=== PATIENT | female | born 1995 | race Caucasian/White ===

== ENCOUNTER 2023-02-19 10:35 | Inpatient (IN) | payer OTHER ==
[2023-02-19 11:26] VITALS: RESP 18
[2023-02-19] MEDS ORDERED: ELECTROLYTE-148 SOLN 500 ML IV ONE (12:36)
[2023-02-19] MEDS ORDERED: ELECTROLYTE-148 SOLN 1,000 ML IV SCH (12:45)
[2023-02-19 13:01] LABS: BASO % 0.4 % (0-2.0); EOS % 1.2 % (0-4.5); HEMATOCRIT 37.4 % (32.4-45.2); HEMOGLOBIN 11.8 GM/dL (10.7-15.3); LYMPH % 19.3 % (8-40); MCH 21.6 pg (25.7-33.7); MCHC 31.4 g/dl (32.0-36.0); MEAN CELL VOLUME 68.7 fl (80-96); MEAN PLT VOLUME 8.9 fl (7.5-11.1); MONO % 7.9 % (3.8-10.2); NEUT % 71.2 % (42.8-82.8); PLATELET COUNT 206 10^3/uL (134-434); RBC 5.45 M/mm3 (3.60-5.2); RDW 24.9 % (11.6-15.6); WHITE BLOOD COUNT 11.2 K/mm3 (4.0-10.0)
[2023-02-19 13:07] LABS: INR 1.1 (0.83-1.09); PROTHROMBIN TIME (PATIENT) 12.8 SEC (9.7-13.0)
[2023-02-19 13:10] LABS: ACTIVATED PTT 24.4 SECONDS (25.2-36.5)
[2023-02-19 13:18] VITALS: BMI 29.8
[2023-02-19 13:20] LABS: CALCIUM 8.7 mg/dL (8.5-10.1)
[2023-02-19 13:21] LABS: BLOOD UREA NITROGEN 9.3 mg/dL (7-18)
[2023-02-19 13:24] LABS: CREATININE 0.5 mg/dL (0.55-1.3)
[2023-02-19] MEDS ORDERED: FENTANYL/BUPIVACAINE/NS/PF - PCEA - 50 ML DISP.SYRIN EP ONE (13:29)
[2023-02-19 13:51] LABS: ANISOCYTOSIS 3+; MACROCYTOSIS 0; OVALOCYTE 1+; TEAR DROP CELLS 1+
[2023-02-19] MEDS ORDERED: AMPICILLIN - 2 GM in SODIUM CHLORIDE 100 ML IVPB ONE (14:00)
[2023-02-19] MEDS ORDERED: AMPICILLIN SODIUM 2 GM VIAL ONE (14:02)
[2023-02-19] MEDS ORDERED: NALOXONE HCL 0.4 MG/ML VIAL IVPUSH PRN (14:12)
[2023-02-19] MEDS ORDERED: FENTANYL/BUPIVACAINE/NS/PF - PCEA - 50 ML DISP.SYRIN EP SCH (14:15)
[2023-02-19 14:19] LABS: HIV INTERPRETATION NEGATIVE (NEGATIVE)
[2023-02-19] MEDS ORDERED: OXYTOCIN 20 UNITS in 0.9% NS 20 UNIT/1,000 ML INFUS.BAG IV ONE ×2 (14:41→15:57)
[2023-02-19 14:53] LABS: COCAINE, UR NEGATIVE (NEGATIVE); METHADONE, UR NEGATIVE (NEGATIVE); OPIATES, URI NEGATIVE (NEGATIVE); PHENCYCLIDINE,URINE NEGATIVE (NEGATIVE); URINE BENZODIAZEPINES NEGATIVE (NEGATIVE)
[2023-02-19 14:54] LABS: URINE BARBITURATES NEGATIVE (NEGATIVE)
[2023-02-19 14:55] LABS: URINE AMPHETAMINES NEGATIVE (NEGATIVE)
[2023-02-19] MEDS ORDERED: BENZOCAINE 20% 57 GM BOTTLE TP PRN (15:27)
[2023-02-19] MEDS ORDERED: BENZOCAINE 28 GM HEMORRHOIDAL OINTMENT TP PRN (15:27)
[2023-02-19] MEDS ORDERED: WITCH HAZEL 50% (TUCKS) 40 PAD/JAR PAD TP PRN (15:27)
[2023-02-19] MEDS ORDERED: BISACODYL 10 MG SUPP.RECT RC PRN (15:27)
[2023-02-19] MEDS ORDERED: METHYLERGONOVINE MALEATE 0.2 MG/1 ML AMP IM PRN (15:27)
[2023-02-19] MEDS ORDERED: OXYTOCIN 20 UNITS in 0.9% NS 20 UNIT/1,000 ML INFUS.BAG IV SCH (15:30)
[2023-02-19] MEDS ORDERED: AMPICILLIN - 1 GM in SODIUM CHLORIDE 100 ML IVPB SCH (18:00)
[2023-02-20] MEDS: ACETAMINOPHEN 325 MG TABLET (FP) PO PRN (00:08)
[2023-02-20] MEDS: IBUPROFEN 600 MG TABLET (FP) PO PRN ×2 (06:48→19:23)
[2023-02-20 08:18] LABS: BASO % 0.4 % (0-2.0); EOS % 1.1 % (0-4.5); HEMATOCRIT 33.5 % (32.4-45.2); HEMOGLOBIN 10.4 GM/dL (10.7-15.3); LYMPH % 18.7 % (8-40); MCH 21.7 pg (25.7-33.7); MCHC 31.1 g/dl (32.0-36.0); MEAN CELL VOLUME 69.8 fl (80-96); MEAN PLT VOLUME 8.7 fl (7.5-11.1); MONO % 7.2 % (3.8-10.2); NEUT % 72.6 % (42.8-82.8); PLATELET COUNT 189 10^3/uL (134-434); RDW 24.2 % (11.6-15.6); WHITE BLOOD COUNT 13.8 K/mm3 (4.0-10.0)
[2023-02-20] MEDS: PRENATAL VITAMINS W/ FOLIC ACID TABLET (FP) PO SCH (09:26)
[2023-02-20 19:25] VITALS: TEMP 98.4
[2023-02-20] MEDS ORDERED: SENNOSIDES/DOCUSATE COMBO (SENNA PLUS) TABLET (UD) PO PRN (22:00)
[2023-02-21] MEDS: IBUPROFEN 600 MG TABLET (FP) PO PRN (06:29)
[2023-02-21] MEDS: ACETAMINOPHEN 325 MG TABLET (FP) PO PRN (10:04)
[2023-02-21] MEDS: PRENATAL VITAMINS W/ FOLIC ACID TABLET (FP) PO SCH (10:04)
[2023-02-21 10:49] VITALS: BP 106/70; PULSE 98
[2023-02-21 13:54] LABS: POC NITRAZINE NEG
== END 2023-02-21 12:20 | disposition home or self-care (01) | DRG 560 ==
LOC: JDEL 10:35 → JLDR 12:00 → J3W 17:35
PROVIDERS: ADMIT Obstetrics & Gynecology; ATTEND Obstetrics & Gynecology
PROC: 10E0XZZ Delivery of Products of Conception, External Approach (ICD-10-PCS; principal; 2023-02-19)
DX: O69.81X0 Labor and delivery complicated by cord around neck, without compression, not applicable or unspecified (principal); Z3A.39 39 weeks gestation of pregnancy; Z37.0 Single live birth
CPT/HCPCS: 36415; 59025; 76819-TC; 80048; 80307; 83986-QW; 85025; 85610; 85730; 86780; 86850; 86900; 86901; 87340; 87389